=== PATIENT | female | born 1960 | race Caucasian/White ===

== ENCOUNTER 2018-03-15 22:27 | Emergency (ER) | payer OTHER, MEDICARE ==
[2018-03-16] MEDS ORDERED: Hydrocortisone INJ* 100 MG VIAL IV ONE (01:21)
[2018-03-16] MEDS ORDERED: Albuterol/Ipratropium NEB.SOL* Albuterol 2.5 MG/Ipratropium 0.5 MG 3 ML INH ONE (01:21)
[2018-03-16] MEDS ORDERED: Albuterol 2.5 MG/3 ML NEB.SOL* (0.083%) INH ONE (01:21)
[2018-03-16 02:09] LABS: ABS Basophils 0.1 10^3/ul (0-0.2); ABS Eosinophils 0.1 10^3/ul (0-0.6); ABS Lymphocytes 2.4 10^3/ul (1.0-4.8); ABS Monocytes 0.8 10^3/ul (0-0.8); ABS Nucleated RBC 0 10^3/ul; Eosinophil % 0.6 % (0-6); Hematocrit 37 % (35-47); Hemoglobin 12.1 g/dl (12.0-16.0); Lymphocyte % 18.3 % (25-47); Mean Corpuscular HGB Conc 33 g/dl (31-36); Mean Corpuscular Hemoglobin 28 pg (27-31); Mean Corpuscular Volume 85 fL (80-97); Nucleated Red Blood Cells % 0; Platelet Count 244 10^3/ul (150-450); Red Blood Count 4.38 10^6/ul (4.0-5.4); Red Cell Distribution Width 18 % (10.5-15); White Blood Count 13.4 10^3/ul (3.5-10.8)
[2018-03-16 02:17] LABS: INR 0.87 (0.77-1.02)
[2018-03-16 02:21] LABS: EGFR Non-African American 57.6 (>60)
[2018-03-16] MEDS ORDERED: Potassium Chlor TAB* 20 MEQ TAB.ER PO ONE (02:23)
--- NOTE | 2018-03-16 03:10 | ED ---
Emiliana Louis Gabriel scribed for Courtney Moody MD on 03/16/18 at 0137 . Shortness of Breath - HPI Summary HPI Summary: This patient is a 58 year old F presenting to [facility] with a chief complaint of SOB that has been persistent for several days. Pt just finished her course of abx for a URI. The patient rates the pain 10/10 in severity. Pt has multiple autoimmune disease and is on 20mg of prednisone daily. - History of Current Complaint Chief Complaint: EDShortnessOfBreath Time Seen by Provider: 03/16/18 01:10 Hx Obtained From: Patient Onset/Duration: Still Present Timing: Constant Current Severity: Mild Associated Signs & Symptoms: Negative - fever, Cough (Nonproductive) - Allergy/Home Medications Allergies/Adverse Reactions: Allergies Allergy/AdvReac Type Severity Reaction Status Date / Time meperidine [From Demerol] Allergy Vomiting Verified 03/15/18 22:32 PMH/Surg Hx/FS Hx/Imm Hx Endocrine/Hematology History: Reports: Other Endocrine/Hematological Disorders - sjogren's disease Respiratory History: Denies: Hx Chronic Bronchitis, Hx Chronic Obstructive Pulmonary Disease (COPD ), Hx Pleural Effusion Musculoskeletal History: Reports: Hx Rheumatoid Arthritis EENT History: Denies: Hx Deafness Neurological History: Denies: Hx CVA, Hx Dementia Infectious Disease History: No Infectious Disease History: Denies: Traveled Outside the [place] in Last 30 Days - Family History Known Family History: Positive: Hypertension, Diabetes, Respiratory Disease - Social History Lives: With Family Alcohol Use: Rare Substance Use Type: Reports: None Smoking Status (MU): Former Smoker Review of Systems Negative: Fever Positive: Shortness Of Breath, Cough All Other Systems Reviewed And Are Negative: Yes Physical Exam - Summary Physical Exam Summary: VITAL SIGNS: Reviewed. GENERAL: Patient is a well-developed and nourished female who is lying comfortable in the stretcher. Patient is not in any acute respiratory distress. HEAD AND FACE: No signs of trauma. No ecchymosis, hematomas or skull depressions. No sinus tenderness. EYES: PERRLA, EOMI x 2, No injected conjunctiva, no nystagmus. EARS: Hearing grossly intact. Ear canals and tympanic membranes are within normal limits. MOUTH: Oropharynx within normal limits. NECK: Supple, trachea is midline, no adenopathy, no JVD, no carotid bruit, no c- spine tenderness, neck with full ROM. CHEST: Symmetric, no tenderness at palpation LUNGS: decreased breath sounds bilaterally CVS: Regular rate and rhythm, S1 and S2 present, no murmurs or gallops appreciated. ABDOMEN: Soft, non-tender. No signs of distention. No rebound no guarding, and no masses palpated. Bowel sounds are normal. EXTREMITIES: FROM in all major joints, no edema, no cyanosis or clubbing. NEURO: Alert and oriented x 3. No acute neurological deficits. Speech is normal and follows commands. SKIN: Dry and warm Triage Information Reviewed: Yes Vital Signs On Initial Exam: Initial Vitals Temp Pulse Resp BP Pulse Ox 98.1 F 84 20 164/92 100 03/15/18 22:29 03/15/18 22:29 03/15/18 22:29 03/15/18 22:29 03/15/18 22:29 Vital Signs Reviewed: Yes Diagnostics - Vital Signs Vital Signs Temp Pulse Resp BP Pulse Ox 03/15/18 22:29 98.1 F 84 20 164/92 100 - Laboratory Result Diagrams: 03/16/18 01:52 03/16/18 01:52 Lab Statement: Any lab studies that have been ordered have been reviewed, and results considered in the medical decision making process. - Radiology CXR Radiology Interpretation Completed By: ED Physician - no acute process. Pending official report - EKG 0135 Cardiac Rate: NL EKG Rhythm: Sinus Rhythm - at 69 EKG Interpretation: Normal axis. Normal interval. No ischemic changes Course/Dx - Course Assessment/Plan: This patient is a 58 year old F presenting to [facility] with a chief complaint of SOB that has been persistent for several days. Pt just finished her course of abx for a URI. The patient rates the pain 10/10 in severity. Pt has multiple autoimmune disease and is on 20mg of prednisone daily. An EKG reveals Normal axis. Normal interval. No ischemic changes. CXR reveals, no acute process. Blood work obtained. In the ED course the patient was given breathing treatment. Patient will be discharged and f/u with her PCP. The patient is agreeable with this plan. - Diagnoses Provider Diagnoses: Asthma Discharge - Sign-Out/Discharge Documenting (check all that apply): Discharge/Admit/Transfer - Discharge Plan Condition: Stable Disposition: HOME Patient Education Materials: Asthma (ED) Additional Instructions: Please follow up with your primary care provider when you return to [place]. RETURN TO THE ER FOR ANY NEW OR WORSENING SYMPTOMS The documentation as recorded by the Emiliana ponce Gabriel accurately reflects the service I personally performed and the decisions made by , Courtney Moody MD.
[2018-03-16 03:29] VITALS: BP 153/87
--- NOTE | 2018-03-16 04:20 | ED ---
Emiliana Louis Gabriel, scribed for Courtney Moody MD on 03/16/18 at 0419 . Progress - Progress Note Progress Note: The patient's daughter expressed concern for a possible wrist injury. Xray's were ordered and it was negative. Course/Dx - Diagnoses Provider Diagnoses: Asthma Discharge - Sign-Out/Discharge Documenting (check all that apply): Post-Discharge Follow Up - Discharge Plan Condition: Stable Disposition: HOME Patient Education Materials: Asthma (ED) Referrals: No Primary Care Phys,NOPCP [Primary Care Provider] - Additional Instructions: Please follow up with your primary care provider when you return to [place]. RETURN TO THE ER FOR ANY NEW OR WORSENING SYMPTOMS The documentation as recorded by the Emiliana ponce Gabriel accurately reflects the service I personally performed and the decisions made by Heidy flores Abdul, MD.
--- NOTE | 2018-03-16 08:08 | RAD ---
INDICATION: Short of breath COMPARISON: None TECHNIQUE: An AP portable view obtained at 0201 hours is submitted. FINDINGS: Bones/Soft Tissues: There are no acute bony findings. Cardiomediastinal: The cardiomediastinal silhouette is normal. Lungs: There are no infiltrates. Pleura: There are no pleural effusions. Other: None IMPRESSION: NO ACTIVE DISEASE.
--- NOTE | 2018-03-16 08:24 | RAD ---
INDICATION: Right wrist injury COMPARISON: None TECHNIQUE: AP, lateral, and oblique views were obtained. FINDINGS: There is no acute bony change. There is moderate to advanced osteoarthritis but the first carpometacarpal articulation. There is minor radiocarpal osteoarthritis. The soft tissues are intact. IMPRESSION: OSTEOARTHRITIS. NO ACUTE FINDINGS.
== END 2018-03-16 03:28 | disposition home or self-care (01) ==
LOC: ED 22:27
DX: J45.909 Unspecified asthma, uncomplicated (principal); M19.031 Primary osteoarthritis, right wrist; M35.00 Sjogren syndrome, unspecified; M06.9 Rheumatoid arthritis, unspecified; Z88.5 Allergy status to narcotic agent; Z87.891 Personal history of nicotine dependence
CPT/HCPCS: 36415; 71045; 80053; 83880; 84484; 85025; 85379; 85610; 85730; 86140; 87040; 93005; 96374; 99284; A9270-GY; J1720